=== PATIENT | female | born 1965 | race Caucasian/White ===

== ENCOUNTER 2017-02-20 12:24 | Emergency (ER) | payer OTHER ==
[2017-02-20 12:55] VITALS: TEMP 98; BMI 71.1
--- NOTE | 2017-02-20 13:22 | PDOC ---
History of Present Illness - General Chief Complaint: Back Pain Stated Complaint: BACK PAIN Time Seen by Provider: 02/20/17 13:21 - History of Present Illness Initial Comments: 02/20/17 17:53 The patient is a 51 year old female, with a significant past medical history of HTN and chronic back pain secondary to DJD, who presents to the emergency department with sudden onset of left sided upper back pain this morning. The patient reports this morning bending over this morning with the sudden onset of back pain. She reports after being unable to move and describes her pain as a sharp that radiates anteriorly to her chest. She ranks her pain a 10/10 in pain intensity. She denies any numbness and tingling in her LEs. She denies any recent injury or trauma. She denies recent fevers, chills, headache or dizziness. She denies recent nausea, vomit, diarrhea or constipation. She denies recent dysuria, frequency, urgency or hematuria. She denies recent chest pain or shortness of breath. Allergies: NKA Past surgical history: Hysterectomy Social history: Nonsmoker. Denies EtOH use and recreational drug use. Past History - Past Medical History Allergies/Adverse Reactions: Allergies Allergy/AdvReac Type Severity Reaction Status Date / Time No Known Allergies Allergy Verified 11/24/15 12:22 Home Medications: Ambulatory Orders Cetirizine HCl [Zyrtec -] 10 mg PO DAILY #7 tablet 05/15/15 Hydrochlorothiazide [Hctz -] 12.5 mg PO DAILY 02/20/17 HTN: Yes - Surgical History Abdominal Surgery: Yes (LYSIS OF ADHESIONS) Appendectomy: Yes - Suicide/Smoking/Psychosocial Hx Smoking History: Never smoked Have you smoked in the past 12 months: No Information on smoking cessation initiated: No Hx Alcohol Use: Yes (social drinker) Drug/Substance Use Hx: No Substance Use Type: None Review of Systems - Review of Systems Comments:: 02/20/17 17:54 GENERAL/CONSTITUTIONAL: No fever or chills. No weakness. HEAD, EYES, EARS, NOSE AND THROAT: No change in vision. No ear pain or discharge. No sore throat. GASTROINTESTINAL: No nausea, vomiting, diarrhea or constipation. GENITOURINARY: No dysuria, frequency, or change in urination. CARDIOVASCULAR: +chest pain No shortness of breath. RESPIRATORY: No cough, wheezing, or hemoptysis. MUSCULOSKELETAL: +back pain, no joint or muscle swelling or pain. No neck. SKIN: No rash NEUROLOGIC: No headache, vertigo, loss of consciousness, or change in strength/ sensation. ENDOCRINE: No increased thirst. No abnormal weight change. HEMATOLOGIC/LYMPHATIC: No anemia, easy bleeding, or history of blood clots. ALLERGIC/IMMUNOLOGIC: No hives or skin allergy. *Physical Exam - Vital Signs Last Vital Signs Temp Pulse Resp BP Pulse Ox 98.0 F 73 16 143/81 98 02/20/17 12:42 02/20/17 12:42 02/20/17 12:42 02/20/17 12:42 02/20/17 12:42 - Physical Exam Comments: 02/20/17 17:55 GENERAL: Awake, alert, and fully oriented, in no acute distress HEAD: No signs of trauma EYES: PERRLA, EOMI, sclera anicteric, conjunctiva clear ENT: Auricles normal inspection, hearing grossly normal, nares patent, oropharynx clear without exudates. Moist mucosa NECK: Normal ROM, supple, no lymphadenopathy, JVD, or masses LUNGS: Breath sounds equal, clear to auscultation bilaterally. No wheezes, and no crackles HEART: Regular rate and rhythm, normal S1 and S2, no murmurs, rubs or gallops. Blood pressure and pulses equal b/l ABDOMEN: Soft, nontender, normoactive bowel sounds. No guarding, no rebound. No masses EXTREMITIES: Normal range of motion, no edema. No clubbing or cyanosis. No cords , erythema, or tenderness BACK: No midline spinal tenderness in cervical/thoracic/lumbar region. +L thoracic paraspinal ttp, no rashes, deformities, or erythema. NEUROLOGICAL: Normal speech, cranial nerves intact, negative pronator drift, 5/ 5 strength in all 4 extremities, normal sensation to light touch in all 4 extremities, normal cerebellar exam, normal gait, normal reflexes and tone SKIN: Warm, Dry, normal turgor, no rashes or lesions noted. Heart Score/ECG Review - History History: Slightly suspicious - Electrocardiogram EKG: Non specific repolarization disturbance - Age Age: 45-65 - Risk Factors Risk Factors Heart Score: Yes Hx Hypertension Based on the list above the patient has:: 1-2 risk factors - Troponin Troponin: </= normal limit - Score Heart Score - Total: 3 #1 02/20/17 17:59 NSR, rate 67, normal axis and intervals, no BHUPINDER ED Treatment Course - LABORATORY CBC & Chemistry Diagram: 02/20/17 13:40 02/20/17 14:38 Medical Decision Making - Medical Decision Making 02/20/17 17:59 51yo F hx HTN, chronic back pain p/w sudden onset 02/25 L upper back pain radiating to her chest when bending down. Vitals unremarkable, exam with L upper back ttp. Concern for aortic dissection, but differential also includes ACS vs musculoskeletal pain vs PNA -labs -CXR -CT chest, abd, pelvis w/wo -pain control -reassess *DC/Admit/Observation/Transfer Diagnosis at time of Disposition: discharged, Thoracic compression fracture - Discharge Dispostion Disposition: HOME Condition at time of disposition: Improved - Referrals Referrals: Chaim Hester MD [Primary Care Provider] - Jorge Mueller MD [Staff Physician] - - Patient Instructions Printed Discharge Instructions: Vertebral Compression Fracture Additional Instructions: you can take motrin 600 mg every 8 hours as needed for pain. return for any problems or concerns. follow up with dr. mueller, orthopedist. see referral information to call and schedule. return for any problems or concerns .you should also follow up with your primary doctor. - Attestations Physician Attestion: 02/20/17 21:51 I, Dr. Jorgito Wyatt MD, attest that this document has been prepared under my direction and personally reviewed by me in its entirety. I further attest, that it accurately reflects all work, treatment, procedures and medical decision -making performed by me.
[2017-02-20] MEDS ORDERED: morphine CARPU-JECT 4 MG/1 ML DISP.SYRIN IVPUSH ONE (13:25)
[2017-02-20] MEDS ORDERED: morphine CARPU-JECT 2 MG/1 ML DISP.SYRIN ONE (13:45)
[2017-02-20 13:49] LABS: EOSINOPHIL 1.7 % (0-4.5); MCH 28.8 pg (25.7-33.7); MCHC 32.8 g/dl (32.0-36.0); MEAN CELL VOLUME 87.9 fl (80-96); NEUTROPHILS 47.1 % (42.8-82.8); PLATELET COUNT 315 K/MM3 (134-434); RDW 13.5 % (11.6-15.6); WHITE BLOOD COUNT 6.2 K/mm3 (4.0-10.0)
[2017-02-20 14:06] LABS: URINE APPEARANCE CLEAR; URINE BILIRUBIN NEGATIVE (NEGATIVE); URINE BLOOD NEGATIVE (NEGATIVE); URINE COLOR STRAW; URINE GLUCOSE (UA) NEGATIVE (NEGATIVE); URINE KETONE NEGATIVE (NEGATIVE); URINE NITRITE NEGATIVE (NEGATIVE); URINE PROTEIN NEGATIVE (NEGATIVE); URINE UROBILINOGEN NEGATIVE mg/dL (0.2-1.0)
[2017-02-20 15:16] LABS: ALBUMIN 3.7 g/dl (3.4-5.0); ANION GAP 7 (8-16); BILIRUBIN,TOTAL 0.5 mg/dL (0.2-1.0); CALCIUM 9.2 mg/dL (8.5-10.1); CO2 30 mmol/L (21-32); CREATININE 0.8 mg/dL (0.55-1.02); GLUCOSE,RANDOM 95 mg/dL (74-106); SGOT/AST 22 U/L (15-37); SGPT/ALT 34 U/L (12-78); TOT PROT 7.5 g/dl (6.4-8.2)
[2017-02-20 15:17] LABS: ALK PHOS 127 U/L (45-117)
[2017-02-20 15:18] LABS: CPK 117 IU/L (26-192); TROPONIN I < 0.02 ng/ml (0.00-0.05)
--- NOTE | 2017-02-20 15:26 | EKG ---
Test Reason : Blood Pressure : / mmHG Vent. Rate : 067 BPM Atrial Rate : 067 BPM P-R Int : 174 ms QRS Dur : 084 ms QT Int : 432 ms P-R-T Axes : 033 -16 006 degrees QTc Int : 456 ms NORMAL SINUS RHYTHM CANNOT RULE OUT ANTERIOR INFARCT , AGE UNDETERMINED ABNORMAL ECG WHEN COMPARED WITH ECG OF 24-NOV-2015 12:35, NO SIGNIFICANT CHANGE WAS FOUND Confirmed by CLAUDETTE CAMARENA MD ([id number]) on 02/20/2017 3:25:47 PM Referred By: Confirmed By:CLAUDETTE CAMARENA MD
[2017-02-20 15:31] LABS: INR 0.98 (0.82-1.09); PROTHROMBIN TIME (PATIENT) 10.8 SEC (9.98-11.88)
[2017-02-20 18:34] LABS: CPK 109 IU/L (26-192); TROPONIN I < 0.02 ng/ml (0.00-0.05)
[2017-02-20 18:39] LABS: URINE LEUK ESTERASE Negative (NEGATIVE)
[2017-02-20 19:29] VITALS: BP 145/69; PULSE 79
--- NOTE | 2017-02-20 19:58 | PDOC ---
*Physical Exam - Vital Signs Last Vital Signs Temp Pulse Resp BP Pulse Ox 98.0 F 79 18 145/69 96 02/20/17 12:42 02/20/17 19:28 02/20/17 19:28 02/20/17 19:28 02/20/17 19:28 - Physical Exam General Appearance: Yes: Nourished Neck: negative: Trachea midline ED Treatment Course - LABORATORY CBC & Chemistry Diagram: 02/20/17 13:40 02/20/17 14:38 - ADDITIONAL ORDERS Additional order review: Laboratory Results 02/20/17 02/20/17 02/20/17 17:50 14:38 14:38 PT with INR INR PTT (Actin FS) Sodium Potassium Chloride Carbon Dioxide Anion Gap BUN Creatinine Creat Clearance w eGFR Random Glucose Calcium Magnesium Total Bilirubin AST ALT Alkaline Phosphatase Creatine Kinase 109 Troponin I < 0.02 Total Protein Albumin Lipase Beta HCG, Quant Cancelled Serum , Qual Questionable Urine Color Urine Appearance Urine pH Ur Specific [place] Urine Protein Urine Glucose (UA) Urine Ketones Urine Blood Urine Nitrite Urine Bilirubin Urine Urobilinogen Ur Leukocyte Esterase Blood Type Antibody Screen Spec Expiration Date 02/20/17 02/20/17 02/20/17 14:38 14:38 14:38 PT with INR INR PTT (Actin FS) Sodium 139 Potassium 4.1 Chloride 102 Carbon Dioxide 30 Anion Gap 7 L BUN 14 Creatinine 0.8 Creat Clearance w eGFR > 60 Random Glucose 95 Calcium 9.2 Magnesium Total Bilirubin 0.5 D AST 22 ALT 34 D Alkaline Phosphatase 127 H Creatine Kinase 117 Troponin I < 0.02 Total Protein 7.5 Albumin 3.7 Lipase 124 Beta HCG, Quant 3.6 Serum , Qual Urine Color Urine Appearance Urine pH Ur Specific [place] Urine Protein Urine Glucose (UA) Urine Ketones Urine Blood Urine Nitrite Urine Bilirubin Urine Urobilinogen Ur Leukocyte Esterase Blood Type O POSITIVE Antibody Screen Negative Spec Expiration Date 02/20/17 02/20/17 02/20/17 14:04 13:40 13:40 PT with INR INR PTT (Actin FS) Sodium Cancelled Potassium Cancelled Chloride Cancelled Carbon Dioxide Cancelled Anion Gap Cancelled BUN Cancelled Creatinine Cancelled Creat Clearance w eGFR Cancelled Random Glucose Cancelled Calcium Cancelled Magnesium Cancelled Total Bilirubin Cancelled AST Cancelled ALT Cancelled Alkaline Phosphatase Cancelled Creatine Kinase Troponin I Cancelled Total Protein Cancelled Albumin Cancelled Lipase Cancelled Beta HCG, Quant Serum , Qual Cancelled Urine Color Urine Appearance Urine pH Ur Specific [place] Urine Protein Urine Glucose (UA) Urine Ketones Urine Blood Urine Nitrite Urine Bilirubin Urine Urobilinogen Ur Leukocyte Esterase Blood Type Cancelled Antibody Screen Cancelled Spec Expiration Date Cancelled 02/20/17 02/20/17 13:40 13:27 PT with INR 10.80 INR 0.98 PTT (Actin FS) 34.0 Sodium Potassium Chloride Carbon Dioxide Anion Gap BUN Creatinine Creat Clearance w eGFR Random Glucose Calcium Magnesium Total Bilirubin AST ALT Alkaline Phosphatase Creatine Kinase Troponin I Total Protein Albumin Lipase Beta HCG, Quant Serum , Qual Urine Color Straw Urine Appearance Clear Urine pH 6.0 Ur Specific [place] 1.010 Urine Protein Negative Urine Glucose (UA) Negative Urine Ketones Negative Urine Blood Negative Urine Nitrite Negative Urine Bilirubin Negative Urine Urobilinogen Negative Ur Leukocyte Esterase Negative Blood Type Antibody Screen Spec Expiration Date 02/20/17 13:40 RBC 4.68 MCV 87.9 MCHC 32.8 RDW 13.5 MPV 8.0 Neutrophils % 47.1 Lymphocytes % 43.8 H Monocytes % 6.4 Eosinophils % 1.7 D Basophils % 1.0 - Medications Given in the ED: ED Medications Discontinued Medications Generic Name Dose Route Start Last Admin Trade Name Freq PRN Reason Stop Dose Admin Morphine Sulfate 4 mg 02/20/17 13:25 02/20/17 13:54 Morphine Injection - IVPUSH 02/20/17 13:26 4 mg ONCE ONE Administration Medical Decision Making - Medical Decision Making 02/20/17 19:55 pt signed out to [facility] 7 pm , awaiting ct angio r/o dissection. negative for disection. noted incidental compression deformity t7/ t8. d/w pt. has had fall 2 weeks ago. states pain worse with movement. tenderness to palpation in that area. . will prescribe motrin 600 mg every 8 hours as needed for pain. given referral for ami briggs given copies of test results and ct. noted incidental hepatic cyst. *DC/Admit/Observation/Transfer Diagnosis at time of Disposition: discharged, Compression fracture of thoracic vertebra - Discharge Dispostion Disposition: HOME Condition at time of disposition: Improved Admit: No - Referrals Referrals: Chaim Hester MD [Primary Care Provider] - Jorge Mueller MD [Staff Physician] - - Patient Instructions Printed Discharge Instructions: Vertebral Compression Fracture Additional Instructions: you can take motrin 600 mg every 8 hours as needed for pain. return for any problems or concerns. follow up with dr. mueller, orthopedist. see referral information to call and schedule. return for any problems or concerns .you should also follow up with your primary doctor. - Post Discharge Activity
== END 2017-02-20 19:41 | disposition home or self-care (01) ==
LOC: JER 12:24
PROC: 3E033NZ Introduction of Analgesics, Hypnotics, Sedatives into Peripheral Vein, Percutaneous Approach (ICD-10-PCS; principal; 2017-02-20)
DX: S22.009A Unspecified fracture of unspecified thoracic vertebra, initial encounter for closed fracture (principal); X58.XXXA Exposure to other specified factors, initial encounter; Y93.89 Activity, other specified; Y92.9 Unspecified place or not applicable
CPT/HCPCS: 36415; 71010-TC; 71270-TC; 74174-TC; 80053; 81003; 83690; 84484; 84702; 84703; 85025; 85610; 85730; 86850; 86900; 86901; 87086; 93005; 93010; 96374; 99283-25

== ENCOUNTER 2017-07-22 16:30 | Emergency (ER) | payer OTHER ==
--- NOTE | 2017-07-22 16:39 | PDOC ---
Rapid Medical Evaluation Time Seen by Provider: 07/22/17 16:32 Medical Evaluation: Allergies Allergy/AdvReac Type Severity Reaction Status Date / Time No Known Allergies Allergy Verified 07/22/17 16:32 07/22/17 16:32 The patient presents with a chief complaint of: [Low back pain and left leg pain since Friday. Was given methyprednisilone 4 mg daily by MD Hester. No pain on urination. denies trauma, no lifting. H/O herniated disc. Tried percocet, methyprednisilone, dficlofenac, motrin no resolve. I have performed a brief in-person evaluation of this patient. Pertinent physical exam findings: vss,[Left lateral back pain and spasm. ] I have ordered the following: None The patient will proceed to the ED for further evaluation. 07/22/17 16:37 Discharge Disposition - Diagnosis Back pain Qualifiers: Back pain location: low back pain - Referrals - Patient Instructions - Post Discharge Activity
[2017-07-22 16:45] VITALS: BP 142/85; PULSE 77; TEMP 97.8; BMI 32.3
[2017-07-22] MEDS ORDERED: KETOROLAC TROMETHAMINE 60 MG/2 ML VIAL IM ONE (17:05)
[2017-07-22] MEDS ORDERED: KETOROLAC TROMETHAMINE 60 MG/2 ML VIAL ONE (17:08)
[2017-07-22] MEDS ORDERED: diazePAM 5 MG TABLET ONE (17:18)
[2017-07-22] MEDS ORDERED: diazePAM 5 MG TABLET PO ONE ×2 (17:18→17:27)
[2017-07-22 17:19] LABS: URINE APPEARANCE CLEAR; URINE BILIRUBIN NEGATIVE (NEGATIVE); URINE BLOOD NEGATIVE (NEGATIVE); URINE COLOR STRAW; URINE GLUCOSE (UA) NEGATIVE (NEGATIVE); URINE KETONE NEGATIVE (NEGATIVE); URINE LEUK ESTERASE NEGATIVE (NEGATIVE); URINE NITRITE NEGATIVE (NEGATIVE); URINE PROTEIN NEGATIVE (NEGATIVE); URINE UROBILINOGEN NEGATIVE mg/dL (0.2-1.0)
--- NOTE | 2017-07-22 17:20 | PDOC ---
History of Present Illness - General Chief Complaint: Back Pain Stated Complaint: BACK PAIN Time Seen by Provider: 07/22/17 16:32 History Source: Patient Exam Limitations: No Limitations - History of Present Illness Initial Comments: 07/22/17 17:36 51 yr female with history of back pain, herniated discs, sciatica followed by in [place]. Pt has been told she needs back surgery. Pt states the past 4 days pain is getting worse, has been lying in the bed most of the day. Pt denies fever, no incontinence of bowel or bladder. no abd pain . Severity: reports: mild Pain Location: reports: back Method of Injury: No: unknown Modifying Factors: improves with: None Associated Symptoms (Fall): denies symptoms Past History - Past Medical History Allergies/Adverse Reactions: Allergies Allergy/AdvReac Type Severity Reaction Status Date / Time No Known Allergies Allergy Verified 07/22/17 16:32 Home Medications: Ambulatory Orders Cetirizine HCl [Zyrtec -] 10 mg PO DAILY #7 tablet 05/15/15 Hydrochlorothiazide [Hctz -] 12.5 mg PO DAILY 02/20/17 Diazepam [Valium] 5 mg PO Q8H PRN #12 tablet MDD 15mg 07/22/17 Ibuprofen [Motrin -] 600 mg PO TID PRN #60 tablet 07/22/17 COPD: No DVT: No HTN: Yes - Surgical History Abdominal Surgery: Yes (LYSIS OF ADHESIONS) Appendectomy: Yes - Immunization History Immunization Up to Date: Yes - Suicide/Smoking/Psychosocial Hx Smoking History: Never smoked Have you smoked in the past 12 months: No Information on smoking cessation initiated: No Hx Alcohol Use: No Drug/Substance Use Hx: No Substance Use Type: None Trauma Specific PMHX - Complaint Specific PMHX Back Injury: Yes Review of Systems - Review of Systems Able to Perform ROS?: Yes Is the patient limited Citizen [place] proficient: No Constitutional: No: Symptoms Reported HEENTM: No: Symptoms Reported Respiratory: No: Symptoms reported Cardiac (ROS): No: Symptoms Reported ABD/GI: No: Symptoms Reported : No: Symptoms Reported Musculoskeletal: Yes: Symptoms Reported, Back Pain *Physical Exam - Vital Signs Last Vital Signs Temp Pulse Resp BP Pulse Ox 97.8 F 77 15 142/85 100 07/22/17 16:33 07/22/17 16:33 07/22/17 16:33 07/22/17 16:33 07/22/17 16:33 - Physical Exam General Appearance: Yes: Nourished, Appropriately Dressed HEENT: positive: EOMI, NATALYA, Normal ENT Inspection, TMs Normal, Pharynx Normal Neck: positive: Supple. negative: Tender Respiratory/Chest: positive: Lungs Clear, Normal Breath Sounds Cardiovascular: positive: Regular Rhythm, Regular Rate Gastrointestinal/Abdominal: positive: Normal Bowel Sounds, Soft. negative: Tender Rectal Exam: positive: normal rectal tone Lymphatic: negative: Adenopathy Musculoskeletal: positive: Normal Inspection Extremity: positive: Normal Capillary Refill, Normal Inspection, Normal Range of Motion, Other (left leg raise pain at 40 degrees, pain to buttock and thigh anteriorly) Integumentary: positive: Normal Color, Dry, Warm Neurologic: positive: Fully Oriented, Alert, Normal Mood/Affect, Normal Response , Motor Strength 5/5 Medical Decision Making - Medical Decision Making 07/22/17 18:03 cc: acute on chronic low back pain neg saddle anesthesia neg groin or abd pain neg fever or chills neg bowel or bladder dysfunction will send UA to r/o UTI r/o kidney stone however pain is tupical of her acute low back pain flare ups will gie toradol and valium pt feels better after meds is asking to be dc home with family. pt is ambualtory able to dress herself, ambulates slowly but steadily *DC/Admit/Observation/Transfer Diagnosis at time of Disposition: Back pain Qualifiers: Back pain location: low back pain Chronicity: chronic Back pain laterality: bilateral Sciatica presence: with sciatica Sciatica laterality: sciatica of left side Qualified Code(s): M54.42 - Lumbago with sciatica, left side; G89.29 - Other chronic pain; G89.29 - Other chronic pain - Discharge Dispostion Disposition: HOME Condition at time of disposition: Good - Prescriptions Prescriptions: Diazepam [Valium] 5 mg PO Q8H PRN #12 tablet MDD 15mg PRN Reason: Muscle Spasms Ibuprofen [Motrin -] 600 mg PO TID PRN #60 tablet PRN Reason: Pain - Referrals Referrals: Chaim Hester MD [Primary Care Provider] - - Patient Instructions Additional Instructions: follow with your back doctor in 1-2 days do not lie in bed all day as this can make your pain worse apply ice every 2hrs for 20 minutes alternate with heating pad take the medication as prescribed, take the medication your doctor has prescribed as well return to ER for any worsening symptoms , leaking of bowel or urine or any severe pain - Post Discharge Activity
== END 2017-07-22 18:18 | disposition home or self-care (01) ==
LOC: JER 16:30 → JERFT 16:30
PROC: 3E0233Z Introduction of Anti-inflammatory into Muscle, Percutaneous Approach (ICD-10-PCS; principal; 2017-07-22)
DX: M54.42 Lumbago with sciatica, left side (principal); I10 Essential (primary) hypertension; G89.29 Other chronic pain
CPT/HCPCS: 81003; 99281-25

== ENCOUNTER 2018-12-31 18:02 | Emergency (ER) | payer OTHER | END 2018-12-31 19:10 | disposition home or self-care (01) | LOC: JER 18:02 → JERFT 19:10 ==

== ENCOUNTER 2020-04-24 12:16 | Emergency (ER) | payer OTHER ==
[2020-04-24 12:25] VITALS: BP 167/94; PULSE 73; TEMP 97.8; BMI 32.1
== END 2020-04-24 13:42 | disposition home or self-care (01) ==
LOC: JERFT 12:16
DX: M25.562 Pain in left knee (principal)
CPT/HCPCS: 73562-TC-LT-FY; 99284-25

== ENCOUNTER 2022-09-15 20:19 | Inpatient (IN) | payer OTHER ==
[2022-09-15] MEDS ORDERED: morphine CARPU-JECT 4 MG/1 ML DISP.SYRIN IVPUSH ONE (20:56)
[2022-09-15] MEDS ORDERED: morphine SULFATE 4 MG/ML VIAL ONE (20:59)
[2022-09-15] MEDS ORDERED: FENTANYL CITRATE/PF 50 MCG/ML VIAL ONE (21:17)
[2022-09-15 21:39] LABS: BASO % 0.6 % (0-2.0); EOS % 1.2 % (0-4.5); HEMATOCRIT 37.8 % (32.4-45.2); HEMOGLOBIN 12.8 GM/dL (10.7-15.3); LYMPH % 48.7 % (8-40); MCH 29.3 pg (25.7-33.7); MEAN CELL VOLUME 86.2 fl (80-96); MEAN PLT VOLUME 7.6 fl (7.5-11.1); MONO % 8.5 % (3.8-10.2); PLATELET COUNT 293 10^3/uL (134-434); RBC 4.38 M/mm3 (3.60-5.2); RDW 14.2 % (11.6-15.6); WHITE BLOOD COUNT 6.2 K/mm3 (4.0-10.0)
[2022-09-15 21:43] LABS: POTASSIUM 3.8 mmol/L (3.5-5.1)
[2022-09-15 21:47] LABS: ALBUMIN 3.6 g/dl (3.4-5.0); CALCIUM 8.7 mg/dL (8.5-10.1); MAGNESIUM 1.9 mg/dL (1.8-2.4)
[2022-09-15 21:49] LABS: CREATININE 0.8 mg/dL (0.55-1.3)
[2022-09-15 21:50] LABS: INR 0.9 (0.83-1.09); PROTHROMBIN TIME (PATIENT) 10.5 SEC (9.7-13.0)
[2022-09-15 21:51] LABS: BILIRUBIN,TOTAL 0.7 mg/dL (0.2-1)
[2022-09-15 21:52] LABS: ACTIVATED PTT 32.2 SECONDS (25.2-36.5)
[2022-09-15] MEDS ORDERED: DEXAMETHASONE SOD PHOSPHATE 10 MG/1 ML VIAL IVPUSH ONE (22:16)
[2022-09-15] MEDS ORDERED: DEXAMETHASONE SOD PHOSPHATE 10 MG/1 ML VIAL ONE (22:26)
[2022-09-16] MEDS ORDERED: FENTANYL CITRATE/PF 50 MCG/ML VIAL ONE (00:11)
[2022-09-16] MEDS ORDERED: ACETAMINOPHEN 1000 MG/100 ML BAG IVPB PRN (01:01)
[2022-09-16] MEDS ORDERED: HYDROmorphone HCl 2 MG/ML VIAL IVPB PRN ×2 (01:02→06:46)
[2022-09-16 03:43] VITALS: BMI 34.1
[2022-09-16] MEDS: LACTATED RINGERS SOLUTION 1,000 ML/1,000 ML INFUS.BAG IV SCH (04:14)
[2022-09-16] MEDS: DEXAMETHASONE SOD PHOSPHATE 10 MG/1 ML VIAL IVPUSH SCH ×4 (04:14→21:32)
[2022-09-16] MEDS: amLODIPine BESYLATE 5 MG TABLET (FP) PO SCH (09:06)
[2022-09-16] MEDS: HYDROCHLOROTHIAZIDE 25 MG TABLET (FP) PO SCH (09:06)
[2022-09-16 10:04] LABS: BASO % 0.2 % (0-2.0); HEMATOCRIT 38.7 % (32.4-45.2); HEMOGLOBIN 13.4 GM/dL (10.7-15.3); LYMPH % 28.3 % (8-40); MCH 29.5 pg (25.7-33.7); MCHC 34.7 g/dl (32.0-36.0); MEAN CELL VOLUME 85.2 fl (80-96); MEAN PLT VOLUME 7.7 fl (7.5-11.1); MONO % 0.5 % (3.8-10.2); PLATELET COUNT 305 10^3/uL (134-434); RBC 4.55 M/mm3 (3.60-5.2); RDW 14.2 % (11.6-15.6)
[2022-09-16 10:18] LABS: PH,URINE 6.5 (5.0-8.0); URINE APPEARANCE CLEAR; URINE BILIRUBIN NEGATIVE (NEGATIVE); URINE COLOR YELLOW; URINE GLUCOSE (UA) NEGATIVE (NEGATIVE); URINE KETONE NEGATIVE (NEGATIVE); URINE LEUK ESTERASE NEGATIVE (NEGATIVE); URINE NITRITE NEGATIVE (NEGATIVE); URINE PROTEIN NEGATIVE (NEGATIVE); URINE UROBILINOGEN 0.2 mg/dL (0.2-1.0)
[2022-09-16 11:03] LABS: POTASSIUM 4.2 mmol/L (3.5-5.1)
[2022-09-16 11:07] LABS: ALBUMIN 3.7 g/dl (3.4-5.0); BLOOD UREA NITROGEN 17.7 mg/dL (7-18); CALCIUM 9.3 mg/dL (8.5-10.1); MAGNESIUM 2.1 mg/dL (1.8-2.4)
[2022-09-16 11:11] LABS: CREATININE 0.7 mg/dL (0.55-1.3); PHOSPHOROUS 2.6 mg/dL (2.5-4.9)
[2022-09-16 11:13] LABS: BILIRUBIN,TOTAL 0.5 mg/dL (0.2-1); TOT PROT 7.5 g/dl (6.4-8.2)
[2022-09-17] MEDS: DEXAMETHASONE SOD PHOSPHATE 10 MG/1 ML VIAL IVPUSH SCH ×4 (02:16→22:14)
[2022-09-17] MEDS: LACTATED RINGERS SOLUTION 1,000 ML/1,000 ML INFUS.BAG IV SCH (02:23)
[2022-09-17] MEDS: amLODIPine BESYLATE 5 MG TABLET (FP) PO SCH (09:02)
[2022-09-17] MEDS: ACETAMINOPHEN 1000 MG/100 ML BAG IVPB PRN (09:02)
[2022-09-17] MEDS: HYDROCHLOROTHIAZIDE 25 MG TABLET (FP) PO SCH (09:02)
[2022-09-17 09:12] LABS: BASO % 0.1 % (0-2.0); HEMATOCRIT 38.1 % (32.4-45.2); HEMOGLOBIN 13.1 GM/dL (10.7-15.3); LYMPH % 12.1 % (8-40); MCH 29.4 pg (25.7-33.7); MCHC 34.4 g/dl (32.0-36.0); MEAN CELL VOLUME 85.6 fl (80-96); MEAN PLT VOLUME 7.9 fl (7.5-11.1); MONO % 2.4 % (3.8-10.2); NEUT % 85.4 % (42.8-82.8); PLATELET COUNT 302 10^3/uL (134-434); RBC 4.45 M/mm3 (3.60-5.2); RDW 13.9 % (11.6-15.6); WHITE BLOOD COUNT 14.5 K/mm3 (4.0-10.0)
[2022-09-17 09:30] LABS: POTASSIUM 3.7 mmol/L (3.5-5.1)
[2022-09-17 09:34] LABS: BLOOD UREA NITROGEN 17.2 mg/dL (7-18); CALCIUM 9.3 mg/dL (8.5-10.1)
[2022-09-17 09:38] LABS: CREATININE 0.7 mg/dL (0.55-1.3)
[2022-09-17] MEDS ORDERED: GABAPENTIN 300 MG CAPSULE PO SCH (22:00)
[2022-09-18] MEDS: DEXAMETHASONE SOD PHOSPHATE 10 MG/1 ML VIAL IVPUSH SCH ×3 (02:48→15:22)
[2022-09-18] MEDS: ACETAMINOPHEN 1000 MG/100 ML BAG IVPB PRN (02:48)
[2022-09-18] MEDS: HYDROCHLOROTHIAZIDE 25 MG TABLET (FP) PO SCH (10:16)
[2022-09-18] MEDS: amLODIPine BESYLATE 5 MG TABLET (FP) PO SCH (10:16)
[2022-09-18] MEDS ORDERED: KETOROLAC TROMETHAMINE 15 MG/ML VIAL IVPUSH ONE (11:11)
[2022-09-18] MEDS ORDERED: CYCLOBENZAPRINE HCL 10 MG TABLET (FP) PO ONE (11:55)
[2022-09-18] MEDS ORDERED: BACLOFEN 10 MG TABLET (FP) PO ONE (15:55)
[2022-09-18] MEDS: ACETAMINOPHEN 325 MG TABLET (FP) PO SCH ×2 (16:46→21:49)
[2022-09-18] MEDS ORDERED: ACETAMINOPHEN 1000 MG/100 ML BAG IVPB PRN (16:58)
[2022-09-18] MEDS: GABAPENTIN 300 MG CAPSULE PO SCH (21:49)
[2022-09-18] MEDS ORDERED: CYCLOBENZAPRINE HCL 10 MG TABLET (FP) PO SCH (22:00)
[2022-09-19] MEDS ORDERED: KETOROLAC TROMETHAMINE 15 MG/ML VIAL IVPUSH ONE (01:28)
[2022-09-19] MEDS: ACETAMINOPHEN 325 MG TABLET (FP) PO SCH ×3 (04:15→15:10)
[2022-09-19] MEDS: GABAPENTIN 300 MG CAPSULE PO SCH ×2 (06:39→13:25)
[2022-09-19] MEDS ORDERED: DOCUSATE SODIUM 100 MG CAPSULE (FP) PO ONE (08:19)
[2022-09-19 08:20] LABS: HEMATOCRIT 38.6 % (32.4-45.2); HEMOGLOBIN 13.5 GM/dL (10.7-15.3); LYMPH % 26.8 % (8-40); MCH 29.9 pg (25.7-33.7); MCHC 34.9 g/dl (32.0-36.0); MEAN CELL VOLUME 85.7 fl (80-96); MEAN PLT VOLUME 8.1 fl (7.5-11.1); MONO % 4.7 % (3.8-10.2); NEUT % 68.5 % (42.8-82.8); PLATELET COUNT 299 10^3/uL (134-434); RBC 4.51 M/mm3 (3.60-5.2); RDW 13.8 % (11.6-15.6); WHITE BLOOD COUNT 12.7 K/mm3 (4.0-10.0)
[2022-09-19] MEDS ORDERED: POLYETHYLENE GLYCOL (HEALTHYLAX) 3350 17 GM PACKET PO ONE (08:30)
[2022-09-19 08:33] LABS: CALCIUM 8.8 mg/dL (8.5-10.1)
[2022-09-19 08:34] LABS: ALBUMIN 3.5 g/dl (3.4-5.0); BLOOD UREA NITROGEN 21.5 mg/dL (7-18)
[2022-09-19 08:38] LABS: CREATININE 0.7 mg/dL (0.55-1.3)
[2022-09-19 08:39] LABS: BILIRUBIN,TOTAL 0.6 mg/dL (0.2-1); TOT PROT 6.9 g/dl (6.4-8.2)
[2022-09-19] MEDS: HYDROCHLOROTHIAZIDE 25 MG TABLET (FP) PO SCH (09:09)
[2022-09-19] MEDS: amLODIPine BESYLATE 5 MG TABLET (FP) PO SCH (09:10)
[2022-09-19] MEDS ORDERED: BACLOFEN 10 MG TABLET (FP) PO SCH (10:00)
[2022-09-19 14:47] VITALS: BP 140/86; PULSE 62; RESP 18; TEMP 97.3
== END 2022-09-19 15:14 | disposition home health service (06) | DRG 347 ==
LOC: JER 20:19 → JERBED 23:08 → J6S 09-16 03:12
PROVIDERS: ADMIT Internal Medicine; ATTEND Internal Medicine
DX: M54.16 Radiculopathy, lumbar region (principal); G95.89 Other specified diseases of spinal cord; I10 Essential (primary) hypertension; D72.829 Elevated white blood cell count, unspecified; M54.42 Lumbago with sciatica, left side; R32 Unspecified urinary incontinence; R73.9 Hyperglycemia, unspecified; R20.2 Paresthesia of skin; M50.30 Other cervical disc degeneration, unspecified cervical region; M51.34 Other intervertebral disc degeneration, thoracic region
CPT/HCPCS: 0241U-QW; 36415; 70450-TC; 72125-TC; 72131-TC; 72141-TC; 72146-TC; 72158-TC; 80048; 80053; 81003; 83735; 84100; 85025; 85610; 85651; 85730; 86140; 86850; 86900; 86901; 87086; 93005; 93010; 97116-GP; 97162-GP; 99285-25; J0475; J1100

== ENCOUNTER 2023-04-15 02:39 | Emergency (ER) | payer OTHER ==
[2023-04-15 02:45] VITALS: BMI 31.8
[2023-04-15 03:54] LABS: URINE APPEARANCE CLEAR; URINE BILIRUBIN NEGATIVE (NEGATIVE); URINE COLOR YELLOW; URINE GLUCOSE (UA) NEGATIVE (NEGATIVE); URINE KETONE NEGATIVE (NEGATIVE); URINE LEUK ESTERASE NEGATIVE (NEGATIVE); URINE NITRITE NEGATIVE (NEGATIVE); URINE PROTEIN NEGATIVE (NEGATIVE); URINE UROBILINOGEN 0.2 mg/dL (0.2-1.0)
[2023-04-15] MEDS ORDERED: ACETAMINOPHEN 1000 MG/100 ML BAG IVPB ONE (04:17)
[2023-04-15] MEDS ORDERED: DEXAMETHASONE SOD PHOSPHATE 10 MG/1 ML VIAL IVPUSH ONE (04:17)
[2023-04-15 04:20] LABS: BASO % 0.7 % (0-2.0); EOS % 1.3 % (0-4.5); HEMATOCRIT 38.6 % (32.4-45.2); HEMOGLOBIN 13.1 GM/dL (10.7-15.3); LYMPH % 41.3 % (8-40); MCH 29.7 pg (25.7-33.7); MEAN CELL VOLUME 87.3 fl (80-96); MEAN PLT VOLUME 7.4 fl (7.5-11.1); MONO % 7.3 % (3.8-10.2); NEUT % 49.4 % (42.8-82.8); PLATELET COUNT 365 10^3/uL (134-434); RBC 4.43 M/mm3 (3.60-5.2); RDW 13.3 % (11.6-15.6)
[2023-04-15] MEDS ORDERED: DEXAMETHASONE SOD PHOSPHATE 10 MG/1 ML VIAL ONE (04:25)
[2023-04-15] MEDS ORDERED: ACETAMINOPHEN INJECTION 100 ML IVPB ONE (04:25)
[2023-04-15 04:41] LABS: POTASSIUM 4.2 mmol/L (3.5-5.1)
[2023-04-15 04:44] LABS: ALBUMIN 3.6 g/dl (3.4-5.0); BLOOD UREA NITROGEN 13.5 mg/dL (7-18)
[2023-04-15 04:47] LABS: CREATININE 0.8 mg/dL (0.55-1.3)
[2023-04-15 04:49] LABS: BILIRUBIN,TOTAL 0.5 mg/dL (0.2-1); TOT PROT 7.1 g/dl (6.4-8.2)
[2023-04-15] MEDS ORDERED: VANCOMYCIN 1,000 MG in DEXTROSE 5%-WATER - 250 ML IVPB ONE (06:51)
[2023-04-15] MEDS ORDERED: PIPERACILLIN/TAZOB 4.5 GM 4.5 GM in DEXTROSE 5%-WATER 100 ML IVPB ONE (06:51)
[2023-04-15] MEDS ORDERED: PIPERACILLIN/TAZOB 4.5 GM 4.5 GM/100 ML BAG IVPB ONE (06:53)
[2023-04-15] MEDS ORDERED: VANCOMYCIN 1 GRAM (PRE-DOCKED) 1,000 MG/250 ML BAG IVPB ONE (07:21)
[2023-04-15 07:49] VITALS: RESP 22
[2023-04-15 09:41] VITALS: BP 137/78; PULSE 76; TEMP 98.6
== END 2023-04-15 09:50 | disposition short-term general hospital (02) ==
LOC: JER 02:39
PROC: 3E03329 Introduction of Other Anti-infective into Peripheral Vein, Percutaneous Approach (ICD-10-PCS; principal; 2023-04-15)
PROC: 3E033GC Introduction of Other Therapeutic Substance into Peripheral Vein, Percutaneous Approach (ICD-10-PCS; 2023-04-15)
PROC: 3E033GC Introduction of Other Therapeutic Substance into Peripheral Vein, Percutaneous Approach (ICD-10-PCS; 2023-04-15)
DX: R50.9 Fever, unspecified (principal); R05.9 Cough, unspecified; J02.9 Acute pharyngitis, unspecified; J18.9 Pneumonia, unspecified organism; K12.2 Cellulitis and abscess of mouth; Z20.822 Contact with and (suspected) exposure to COVID-19
CPT/HCPCS: 0241U-QW; 36415; 70491-TC; 71046-TC-FY; 80053; 81003; 85025; 87086; 87651; 96368; 96375; 99285-25; J1100; Q9967

== ENCOUNTER 2023-10-30 04:34 | Day surgery (SDC) | payer OTHER ==
[2023-10-29 12:20] VITALS: BMI 32.1
[2023-10-30 11:32] VITALS: RESP 18
[2023-10-30] MEDS ORDERED: LIDOCAINE VISCOUS 2% ORAL/TOP 15 ML UNIT-DOSE CUP ONE (12:37)
[2023-10-30 13:50] VITALS: TEMP 97.3
[2023-10-30 14:10] VITALS: BP 125/69; PULSE 73
== END 2023-10-30 13:55 | disposition home or self-care (01) ==
LOC: JASU-ENDO 04:34
PROVIDERS: ATTEND Internal Medicine Gastroenterology
PROC: 0DB68ZX Excision of Stomach, Via Natural or Artificial Opening Endoscopic, Diagnostic (ICD-10-PCS; 2023-10-30)
PROC: 0DBH8ZX Excision of Cecum, Via Natural or Artificial Opening Endoscopic, Diagnostic (ICD-10-PCS; principal; 2023-10-30 11:00)
DX: Z12.11 Encounter for screening for malignant neoplasm of colon (principal); D12.0 Benign neoplasm of cecum; K64.4 Residual hemorrhoidal skin tags; R11.0 Nausea
CPT/HCPCS: 88305-TC; 88342-TC